=== PATIENT | female | born 1980 | race Caucasian/White ===

== ENCOUNTER 2022-03-25 08:39 | Observation (INO) ==
[2022-03-25] MEDS ORDERED: SODIUM CHLORIDE 0.9% 1,000 ML IV STA (09:10)
[2022-03-25 09:22] LABS: Basophils % 0.7 % (0.0-0.8); Hematocrit 36.8 VOL% (35.7-47.0); Hemoglobin 13.1 GM/DL (12.0-16.0); Immature Granulocytes % 1.3 %; Immature Granulocytes Absolute 0.06 #; Lymphocytes # 0.9 10*3/uL (1.4-4.0); Lymphocytes % 20.8 % (21.3-54.2); Mean Corpuscular HGB Conc 35.6 GM/DL (32-36); Mean Corpuscular Volume 89.1 FL (87-102); Mean Platelet Volume 8.9 FL (9.6-12.0); Monocytes # 0.3 10*3/uL (0.11-0.8); Monocytes % 6.9 % (1.7-12.7); Neutrophils % 70.3 % (38.7-73.9); Platelet Count 136 T/CUMM (130-400); Red Blood Count 4.13 MC/CUMM (3.8-5.5); Red Cell Distribution Width 11.5 % (9.3-17.3); White Blood Count 4.5 T/CUMM (4-12)
[2022-03-25 09:25] LABS: Glucose,Urine (UA) Negative (Negative); Protein,Urine Negative (Negative); RBC,Urine <1 /HPF (0-4); Squamous Epithelial Cell,Urine Occasional /HPF (0-10); Urine Appearance Clear (Clear); Urine Color Yellow (Yellow); Urine pH 6.5 (4.5-8.0)
[2022-03-25 09:26] LABS: Bilirubin,Urine Negative (Negative); Blood, Urine Negative (Negative); Ketones,Urine Negative (Negative); Nitrite,Urine Negative (Negative); Urine Urobilinogen 0.2 eU/dL (<2.0)
[2022-03-25 09:41] LABS: PT Patient Result 10.8 SECS (10.1-12.1)
[2022-03-25 09:55] LABS: Barbiturates Screen,Urine Positive (Negative); Benzodiazepines Screen,Urine Negative (Negative); Cannabinoid Screen,Urine Negative (Negative); Opiate Screen,Urine Negative (Negative); Phencyclidine Screen,Urine Negative (Negative)
[2022-03-25 09:58] LABS: Alanine Aminotransferase 125 U/L (13-56); Albumin 3.4 G/DL (3.4-5.0); Alkaline Phosphatase 98 U/L (45-117); Aspartate Amino Transferase 77 U/L (0-37); Blood Urea Nitrogen 11 MG/DL (7-18); Calcium 8.5 MG/DL (8.5-10.1); Carbon Dioxide 22 MMOL/L (21-32); Chloride 111 MMOL/L (98-107); Glucose 230 MG/DL (74-106); Osmolality,Calculated 286.3 MOS/KG (273-304); Potassium 3.8 MMOL/L (3.5-5.1); Sodium 141 MMOL/L (136-145); Total Protein 6.8 G/DL (6.4-8.2)
[2022-03-25 10:28] LABS: Arterial Base Excess iSTAT -5 MMOL/L (-2.5-2.5); Arterial Bicarbonate iSTAT 21.2 MMOL/L (20-26); Arterial O2 Saturation iSTAT 60 % (95-100); Arterial PCO2 iSTAT 41 MM HG (35-48); Arterial PO2 iSTAT 34 MM HG (80-95); Arterial Total CO2 iSTAT 22 MMO/L (23-27); Arterial pH iSTAT 7.319 (7.35-7.45)
[2022-03-25 11:49] VITALS: BP 155/99
[2022-03-25] MEDS ORDERED: NICOTINE 21 MG/24 HR PATCH TRANSDERM PRN (12:24)
[2022-03-25] MEDS ORDERED: ALBUTEROL 2.5 MG/3 ML NEB RESP TX PRN (12:24)
[2022-03-25] MEDS ORDERED: ONDANSETRON 4 MG/2 ML VIAL IV PRN (12:24)
[2022-03-25] MEDS ORDERED: MIRTAZAPINE 15 MG TABLET PO PRN (12:26)
[2022-03-25] MEDS ORDERED: DEXTROSE 10% 250 ML BAG IV PRN (12:28)
[2022-03-25] MEDS ORDERED: GLUCAGON 1 MG VIAL IM PRN (12:28)
[2022-03-25] MEDS ORDERED: ENOXAPARIN 40 MG/0.4 ML SYRINGE SUBCUT SCH (12:30)
[2022-03-25] MEDS ORDERED: PANTOPRAZOLE 40 MG VIAL IV SCH (12:30)
[2022-03-25] MEDS: INSULIN LISPRO 100 UNIT/ML SUBCUT SCH ×2 (16:11→20:13)
[2022-03-25] MEDS ORDERED: DIAZEPAM 5 MG TABLET PO PRN (17:35)
[2022-03-25] MEDS ORDERED: cloNIDine 0.1 MG TABLET PO PRN (17:35)
[2022-03-25] MEDS: METOPROLOL SUCCINATE XL 50 MG TABLET PO SCH (18:04)
[2022-03-25] MEDS: busPIRone 10 MG TABLET PO SCH (20:09)
[2022-03-25] MEDS: MORPHINE 2 MG/1 ML SYRINGE IV PRN (20:30)
[2022-03-25] MEDS ORDERED: QUEtiapine 100 MG TABLET PO SCH (21:00)
[2022-03-26] MEDS: PHENOL 1.4% THROAT SPRAY 177 ML BOTTLE PO PRN ×2 (01:30→03:46)
[2022-03-26] MEDS: MORPHINE 2 MG/1 ML SYRINGE IV PRN (01:30)
[2022-03-26] MEDS ORDERED: IBUPROFEN 400 MG TABLET PO PRN (02:19)
[2022-03-26 03:39] LABS: Basophils % 0.3 % (0.0-0.8); Eosinophils % 0.2 % (0.00-10.9); Hematocrit 34.6 VOL% (35.7-47.0); Hemoglobin 12.3 GM/DL (12.0-16.0); Immature Granulocytes % 0.8 %; Immature Granulocytes Absolute 0.05 #; Lymphocytes # 1.8 10*3/uL (1.4-4.0); Lymphocytes % 28.1 % (21.3-54.2); Mean Corpuscular HGB Conc 35.5 GM/DL (32-36); Mean Corpuscular Volume 88.3 FL (87-102); Mean Platelet Volume 9.4 FL (9.6-12.0); Monocytes # 0.5 10*3/uL (0.11-0.8); Monocytes % 7.3 % (1.7-12.7); Neutrophils % 63.3 % (38.7-73.9); Platelet Count 134 T/CUMM (130-400); Red Blood Count 3.92 MC/CUMM (3.8-5.5); Red Cell Distribution Width 11.3 % (9.3-17.3); White Blood Count 6.6 T/CUMM (4-12)
[2022-03-26 03:56] LABS: Calcium 8.6 MG/DL (8.5-10.1); Osmolality,Calculated 272.8 MOS/KG (273-304); Potassium 3.1 MMOL/L (3.5-5.1)
[2022-03-26 04:06] LABS: Platelet Estimate Adequate
[2022-03-26] MEDS ORDERED: POTASSIUM CHLORIDE 20 MEQ TABLET PO SCH (08:00)
[2022-03-26] MEDS: INSULIN LISPRO 100 UNIT/ML SUBCUT SCH (09:24)
[2022-03-26] MEDS: METOPROLOL SUCCINATE XL 50 MG TABLET PO SCH (09:25)
[2022-03-26] MEDS: busPIRone 10 MG TABLET PO SCH (09:25)
[2022-03-26] MEDS ORDERED: METOPROLOL SUCCINATE XL 50 MG TABLET PO SCH (17:34)
== END 2022-03-26 10:30 | disposition home or self-care (01) ==
LOC: N.ED 08:39 → N.ICU 08:39
PROVIDERS: ADMIT Internal Medicine; ATTEND Internal Medicine